=== PATIENT | male | born 1950 ===

== ENCOUNTER 2018-09-07 08:53 | Outpatient (CLI) | payer OTHER | END 2018-09-07 08:59 | disposition home or self-care (01) | LOC: SONOGRAMA 08:53 → MAMO-SONO 10:15 | DX: I12.9 Hypertensive chronic kidney disease with stage 1 through stage 4 chronic kidney disease, or unspecified chronic kidney disease (principal); N18.3 Chronic kidney disease, stage 3 (moderate) ==